=== PATIENT | female | born 1925 | race Caucasian/White ===

== ENCOUNTER 2016-09-13 10:27 | Emergency (ER) | payer MEDICARE, OTHER ==
[~2016-09-13] VITALS: Ht 160 cm; Wt 44.5 kg
[~2016-09-13 10:27] MED LIST: ASCO250T7 PO; CA C1TAB29 PO; CALC-78 PO; HYDR-4150 PO; HYDR200T PO; LEVO75TA36 PO; OMEG-38 PO; PREG150C PO; QUET25TA73 PO; SERT100T PO; VITA100T6 PO
[2016-09-13 10:30] VITALS: BP 197/88; PULSE 79; RESP 14; O2SAT 100
--- NOTE | 2016-09-13 10:37 | ED.REPORT ---
HPI-Trauma Minor / Fall Date of Service Sep 13, 2016 ED Provider: Eunice Quiroz MD 89 year old female with a history of cancer, hypertension and hypothyroid who presents to the ED after she tripped and fell in her driveway just [employer]OR[employer]. Pt landed on her R thumb and hit the L side of her face. Pt with an obvious deformity to the R thumb and a bruised and swollen L eye. Pt denies LOC and neck pain. Pt is not on anticoagulants. Nursing Notes Stated Complaint: LEFT EYE BRUISED/HAND INJURY/FALL Chief Complaint: Multiple Trauma/Fall Nursing Notes Reviewed: Yes Allergies: Coded Allergies: No Known Allergies (Verified , 04/04/15) Scheduled Ascorbic Acid (Vitamin C) 250 Mg Tab.chew 250 MG PO DAILY Ca Cmb 1/Vit D3/B-6/FA/B12/Av (Vitamin D3-Aloe 1,000 Unit Tab) 1 Each Tablet 1 EACH PO DAILY Calcium Carbonate/Vitamin D3 (Calcium 500 + Vit D Caplet) 1 Each Tablet 1 EACH PO DAILY Hydroxychloroquine Sulfate (Plaquenil) 200 Mg Tablet 200 MG PO DAILY Levothyroxine (Levoxyl) 75 Mcg Tablet 75 MCG PO DAILY [place]-3/Dha/Epa/Fish Oil (Fish Oil 1,000 mg Softgel) 1 Each Capsule 1 EACH PO DAILY Pregabalin (Lyrica) 150 Mg Capsule 150 MG PO HS Quetiapine Fumarate (Quetiapine Fumarate) 25 Mg Tablet 25 MG PO HS Sertraline HCl (Zoloft) 100 Mg Tablet 150 MG PO DAILY Vitamin E Acid Succinate (Vitamin E) 100 Unit Tablet Unknown Dose PO DAILY Scheduled PRN Hydrocodone/Acetaminophen (Hackett 5-325 Tablet) 1 Tablet Tablet 1-2 TABLET PO Q4H PRN PRN For Moderate Pain General Time Seen by MD: 10:37 Chief Complaint Fall, Face injury, Extremity pain Hx Obtained From: Patient Arrived By: Walk-in Onset Occurred: Just prior to arrival Symptom Duration: Since onset Caused by: Fall on ground Location: Eye left Hand right Quality: Painful Severity: Current: Mild Associated with: Denies: Loss of consciousness, Neck pain Risk Factors Head CT Imaging Inclusion Criteria: >/= 16 yo age GCS of 14 OR 15 Non Pentrating Injury Presentation w/in 24 hrs. Patient Presents WITHOUT: Loss of Conciousness, PostTraumatic Amnesia, PROCEED W/ CONSIDERATIONS Consider Non Contrast CT for: >/= 60 yo Age WITHOUT LOCNo Auto vs Pedestrian, No Fall Down Steps >/= 5, No Focal Neuro Deficit, No GCS < 15, No S/S Basal Skull Fx, No Vomiting RF Statements: Risk factors reviewed Past Medical History Past Medical History History of lupus. Reports: Cancer, Hypertension Reports: Depression, Thyroid disease Past Surgical History Lumpectomy Bleeding ulcers Right hip fracture secondary to mechanical fall, status post surgery. Reports: Cholecystectomy Reports: Back/neck surgery Smoking History Former Smoker Social History Alcohol Use: Denies alcohol use Drug Use: Denies drug use Other Social History: Ambulatory Status Independent Review of Systems Basic Review of Systems Psychiatric: Normal thought content Constitutional: Denies: Fever Respiratory: Denies: Shortness of breath Musculoskeletal: Reports: Extremity pain Skin: Reports Bruising, Reports Swelling Neurologic: Denies: Change LOC, Headache Complete sys rev & neg: except as marked. Physical Exam Initial Vital Signs Vital Signs (First) Date Time Temp Pulse Resp B/P Pulse Ox O2 Delivery O2 Flow Rate FiO2 09/13/16 10:30 36.6 79 14 197/88 100 Initial VS: Reviewed Respiratory: No respiratory distress Extremities: Vascular intact, Neuro intact Skin: Warm, Dry, No cyanosis Neurologic: Alert, Oriented, Nonfocal Psychiatric: Mood/affect normal, Behavior normal, Normal thought content General/Constitutional: Awake, Alert, Cooperative Neck: Atraumatic, Supple, Full range of motion, No midline vertebral tend Head / Eyes: Normocephalic, PERRL Large L periorbotal hematoma, completely swollen shut. Upon opening, Scleral hemorrhage with normal cornea, normal vision. Upper Extremity / MS: Full range of motion (aside from R thumb), Neurologic intact, Vascular intact Grossly dislocated R thumb Interpretation & Diagnostics Interpretation & Diagnostics: CT face: IMPRESSION: 1. No acute facial fracture. 2. Marked left preorbital soft tissue swelling and periorbital edema with trace left proptosis. The left globe is intact. 3. Mucosal thickening and bony remodeling of the left maxillary sinus consistent with chronic sinusitis. 4. Findings suspicious for acute sinusitis of the frontal sinuses and right sphenoid sinus. Dictated by: Makenzie Crane M.D. on 09/13/2016 at 12:39 X-Ray Interpretation Xray Interpretation: IMPRESSION: 1. Acute fracture first proximal phalanx with angulation deformity. 2. Multifocal osteoarthritis Dictated by: Stan Mas M.D. on 09/13/2016 at 11:04 X-Ray Ordered: Hand right Interpretation / Wet Read by: Interpret - Radiologist CT Head Interpretation IMPRESSION: 1. No acute intracranial disease process. 2. Air-fluid level in left maxillary sinus which could be related to sinusitis versus occult facial fracture. If there is clinical concern for occult facial fracture, a dedicated CT scan of the face should be obtained. Dictated by: Randi Carias MD, PhD on 09/13/2016 at 11:47 Study: Head CT no contrast Interpretation / Wet Read by: Interpret - Radiologist Procedures Digital Nerve Block Time: 13:13 Procedure Performed by: ED physician Indication: Other (Finger fracture/reduction) Consent / Setup / Site Prep: Consent from patient, Time-out performed, Hand hygiene observed, Stand sterile technique Skin Preparation Agent: Other (Alcohol) Digit Involved: Thumb right Digital Block Procedure: Four digital nerve block, Lidocaine 1% Post-Procedure / Complications: No complications, Condition improved, Tolerated procedure well, Patient stable Reduction Finger Time: 13:20 Procedure Performed by: ED physician Consent / Setup / Site Prep: Time-out performed, Hand hygiene observed Finger / Joint Involved: Right 1 Anesthetic Method / Agent: Digital block, Lidocaine 1% Post-Procedure / Complications: NV intact post-procedure, Procedure successful , No complications, Complications, Tolerated procedure well, Patient stable Splint Application - Fx Mgt Splint Application- Fx Mgt: Spica splint to R hand Time: 13:32 Procedure Performed by: ED physician Precise Anatomic Location: R hand Definitive Fracture Care: Follow up > 4 days Post-Procedure / Complications: Cap refill normal, Post splint vascular nl, Post splint neuro nl, Condition improved, Tolerated procedure well, Patient stable Re-Eval/Medical Decision Re-Evaluation/Progress #1: Time of Eval: 10:50 Re-Evaluation/Progress Note: Pt offered pain medication, which she denies at this time. Re-Evaluation/Progress #2: Time of Eval: 12:11 Re-Evaluation/Progress Note: Pt in CT. Her family was updated of imaging results. Re-Evaluation/Progress #3: Time of Eval: 13:15 Re-Evaluation/Progress Note: Pt and family updated of imaging results. Digital block performed. Re-Evaluation/Progress #4: Time of Eval: 14:08 Re-Evaluation/Progress Note: Pt declines pain medication. Discussed plan for d/c and f/u. All questions addressed. Consultation : Referral / Consult Name: Ochoa Harris MD Consulted With: Orthopedic Call Returned at: 14:08 Access Services Assistant: Will see in office Note: Briefly reviewed x-ray and agrees with plan for follow up in the office. Counseled Regarding: Diagnosis, Need for follow-up, When/why to return to ED Discharge & Departure Impression: Primary Impression: Fracture of thumb, right, closed Encounter type: initial encounter Phalanx: proximal Fracture alignment: displaced Qualified Code: S62.511A - Displaced fracture of proximal phalanx of right thumb, initial encounter for closed fracture Additional Impressions: Periorbital hematoma of left eye Fall Encounter type: initial encounter Qualified Code: W19.XXXA - Unspecified fall, initial encounter Disposition: Home Discharge Condition All VS Reviewed: Yes Condition: Improved Patient Instructions: Finger Fracture (ED) Call the orthopedist, Dr. Harris, today to schedule an appointment next week. He will take another look at your broken thumb and put on a real cast. The eye buising is going to look worse for likely a couple weeks. Fortunatley there is NOT anything broken Use tylenol as needed for the pain. Thank you for letting me take care of you today! Referrals: Nereyda Resendez MD (PCP) Ochoa Harris MD Scribe Attestation Portions of this note were transcribed by Rosana Reaves. I, (Eunice Quiroz MD ) personally performed the history, physical exam and medical decision-making; I reviewed and confirmed the accuracy of the information in the transcribed note. Signed by: Rosana Reaves. 09/13/2016, 1410 copies to: Ochoa Harris MD; Nereyda Resendez MD, Shawna L MD Sep 13, 2016 10:37 Rosana Reaves Sep 13, 2016 11:10
--- NOTE | 2016-09-13 11:06 | DRSVH ---
PROCEDURE: X-RAY FINGERS, TWO VIEWS INDICATIONS: thumb trauma TECHNIQUE: AP hand, 2 views of the thumb acquired. COMPARISON: Right hand 01/01/2016 FINDINGS: Bones: Transverse fracture is present through the proximal shaft of the first proximal phalanx with d orsal angulation deformity. Arthritic changes at the basilar joint of the thumb and the IP joint of the thumb as well as visualiz ed joints of the fingers again noted. Soft tissues: No suspicious soft tissue calcifications. IMPRESSION: 1. Acute fracture first proximal phalanx with angulation deformity. 2. Multifocal osteoarthritis Dictated by: Stan Mas M.D. on 09/13/2016 at 11:04 Approved by: Stan Mas M.D. on 09/13/2016 at 11:04
--- NOTE | 2016-09-13 11:50 | DRSVH ---
PROCEDURE: CT BRAIN WITHOUT CONTRAST ([id number]) INDICATIONS: fall, face trauma TECHNIQUE: Noncontrast 4.5 mm thick angled axial sections acquired from the foramen magnum to the vertex, with c oronal reformats. COMPARISON: [facility], MR, BRAIN W/O CONTRAST, 05/20/2014, 14:45. FINDINGS: Image quality: Excellent. CSF spaces: Basal cisterns are patent. No extra-axial fluid collections. The ventricles are symmet emanuel in size and shape. Brain: No intracranial bleeds or masses. There is cerebral volume loss for age, with resultant vent ricular and sulcal prominence. There are periventricular and deep white matter chronic small vessel ischemic changes. There is intracranial internal carotid artery and vertebral artery atherosclerosis . Skull and face: Calvarium and visualized facial bones appear intact, without suspicious lesions. Lef t periorbital facial soft tissue swelling is noted. Sinuses: Air-fluid level noted on the left maxillary sinus. The mastoids are clear. IMPRESSION: 1. No acute intracranial disease process. 2. Air-fluid level in left maxillary sinus which could be related to sinusitis versus occult facial f racture. If there is clinical concern for occult facial fracture, a dedicated CT scan of the face antwan uld be obtained. Dictated by: Randi Carias MD, PhD on 09/13/2016 at 11:47 Approved by: Randi Carias MD, PhD on 09/13/2016 at 11:47
[2016-09-13] MEDS ORDERED: 0.9% Sodium Chloride Inhalation Solution ONE (12:06)
[2016-09-13] MEDS ORDERED: Fluorescein 0.6 mg Ophthalmic Strip ONE (12:06)
[2016-09-13] MEDS ORDERED: TETRACAINE 0.5% ONE (12:06)
--- NOTE | 2016-09-13 12:41 | DRSVH ---
PROCEDURE: CT FACE WITHOUT CONTRAST ([id number]) INDICATIONS: trauma TECHNIQUE: Noncontrast 1.5 mm thick axial images acquired from the mandible through the frontal sinuses, with co carmen and sagittal reformatting. For radiation dose reduction, the following was used: automated ex posure control. COMPARISON: None. FINDINGS: Image quality: Excellent. Bones and teeth: Orbital greene are intact. Sinus greene show no fracture or deformity. Nasal bones and septum are intact. Visualized portions of the mandible demonstrate no fractures or subluxation. Zygomatic arches are intact. Pterygoid plates are intact. Visualized portions of the skull base an d auditory canals are intact. Sinuses: Patient is status post left endoscopic sinus surgery. There is moderate left maxillary sinu s mucosal thickening and equivocal thickening of the inferior left turbinate. There is mild rightward nasal septal deviation. There is bony remodeling and periosteal thickening of the left maxillary sin us. Debris within the right sphenoid sinus has a frothy appearance. Mild mucosal thickening is presen t within the bilateral frontal sinuses and the bilateral anterior recesses. Paranasal sinuses are aer ated, without fluid levels, mucosal thickening, or mucoceles. Mastoid air cells are aerated. Soft tissues: There is marked left preorbital soft tissue swelling. No intraconal fluid; however ther e is mild periorbital edema with trace left proptosis. No unexpected foreign bodies. The globes are i ntact. Vascular: Visualized vascular structures appear normal in the absence of contrast. Bony vascular fo ramina and canals are intact. IMPRESSION: 1. No acute facial fracture. 2. Marked left preorbital soft tissue swelling and periorbital edema with trace left proptosis. The l eft globe is intact. 3. Mucosal thickening and bony remodeling of the left maxillary sinus consistent with chronic sinusit is. 4. Findings suspicious for acute sinusitis of the frontal sinuses and right sphenoid sinus. Dictated by: Makenzie Crane M.D. on 09/13/2016 at 12:39 Approved by: Makenzie Crane M.D. on 09/13/2016 at 12:39
[2016-09-13 14:22] VITALS: PULSE 60; RESP 14; O2SAT 100
== END 2016-09-13 14:24 | disposition home or self-care (01) ==
LOC: SED 10:27
DX: S62.511A Displaced fracture of proximal phalanx of right thumb, initial encounter for closed fracture (principal); S00.12XA Contusion of left eyelid and periocular area, initial encounter; W01.198A Fall on same level from slipping, tripping and stumbling with subsequent striking against other object, initial encounter; Y93.89 Activity, other specified; Y92.410 Unspecified street and highway as the place of occurrence of the external cause; Y99.8 Other external cause status; I10 Essential (primary) hypertension; E07.9 Disorder of thyroid, unspecified; Z98.890 Other specified postprocedural states; Z87.891 Personal history of nicotine dependence

== ENCOUNTER 2016-09-24 08:15 | Observation (INO) | payer MEDICARE, OTHER ==
[~2016-09-24] VITALS: Ht 160 cm; Wt 48.9 kg
[2016-09-24] VITALS (7 sets, daily range): BP systolic 122–174; BP diastolic 50–78; PULSE 75–94; RESP 16–20; O2SAT 98–100
--- NOTE | 2016-09-24 08:36 | ED.REPORT ---
HPI-GI Bleed Date of Service Sep 24, 2016 ED Provider: Oscar Hooper MD 89 year old female with a history of GI bleed and gastric ulcers presents to the ER accompanied by her son complaining of black stool onset yesterday. Associated symptoms include abdominal pain and vomiting 5x two days ago, now resolved, and insomnia. Patient denies dizziness, lightheadedness, chest pain, SOB, and hematemesis. Nursing Notes Stated Complaint: BLEEDING ULCER Chief Complaint: Female Abdominal Pain Nursing Notes Reviewed: Yes ([place] not reconciled) Allergies: Coded Allergies: No Known Allergies (Verified , 09/24/16) Scheduled Ascorbic Acid (Vitamin C) 250 Mg Tab.chew 250 MG PO DAILY Calcium Carbonate/Vitamin D3 (Calcium 500 + Vit D Caplet) 1 Each Tablet 1 EACH PO DAILY Cholecalciferol (Vitamin D3) (Vitamin D3) 1,000 Unit Tab.chew 1,000 UNIT PO DAILY Hydroxychloroquine Sulfate (Hydroxychloroquine Sulfate) 200 Mg Tablet 400 MG PO DAILY Levothyroxine (Levothyroxine) 100 Mcg Tablet 100 MCG PO DAILY Ellinger-3/Dha/Epa/Fish Oil (Fish Oil 1,000 mg Softgel) 1 Each Capsule 1 EACH PO DAILY Pregabalin (Lyrica) 150 Mg Capsule 150 MG PO QAM Quetiapine Fumarate (Quetiapine Fumarate) 25 Mg Tablet 50 MG PO HS Sertraline HCl (Sertraline) 100 Mg Tablet 150 MG PO DAILY Vitamin E Acid Succinate (Vitamin E) 100 Unit Tablet Unknown Dose PO DAILY General Time Seen by Provider: 08:33 Chief Complaint Chief Complaint: Stool tarry black Hx Obtained From: Patient Arrived By: Walk-in Onset Occurred: Yesterday Symptom Duration: Since onset Associated with: Reports: Abdominal pain, Denies: Chest pain, Shortness of breath Risk-GI Bleed Bleeding Risk Stratification Bleeding Risk: No Anticoagulants RF Statements: Risk factors reviewed Past Medical History Past Medical History Notes: Medication List (09/18/2016): Desonide 0.05% topical Hydroxychloroquine 200mg bid Levoxyl 75mcg daily Lyrica 150mg daily Ondansetron 8mg 6-8hrs prn Quetiapine 50mg (2 every pm) Vitamin D 1000 unit daily Voltaren 1% topical Zoloft 100mg tab (1.5 tabs daily) Past Medical History History of admit for upper GI bleed secondary to large gastric ulcer on EGD required 2 units transfusion in October 2009 Lupus Thrombocytopenic disorder Osteoporosis Hypothyroid Trigeminal neuralgia Insomnia Anxiety Reports: Cancer, Hypertension Reports: Depression, GI bleed, Thyroid disease Past Surgical History Lumpectomy Bleeding ulcers Right hip fracture secondary to mechanical fall, status post surgery. Reports: Cholecystectomy Reports: Back/neck surgery Smoking History Former Smoker Social History Alcohol Use: Denies alcohol use Drug Use: Denies drug use Other Social History: Ambulatory Status Independent Review of Systems Constitutional: Denies: Chills, Fever Respiratory: Denies: Non-productive cough, Shortness of breath Cardiovascular: Denies: Chest pain GI: Reports: Abdominal pain, Bloody/tarry stool, Melena, Vomiting, Denies: Hematemesis, Hematochezia Neurologic: Denies: Dizziness, Lightheaded Complete sys rev & neg: except as marked. Physical Exam Initial Vital Signs Vital Signs (First) Date Time Temp Pulse Resp B/P Pulse Ox O2 Delivery O2 Flow Rate FiO2 09/24/16 08:20 36.6 87 16 122/74 98 Room Air Initial VS: Reviewed, Vital signs normal Neck: Supple, Non-tender Skin: Warm, Dry, No cyanosis Neurologic: Alert, Oriented, Nonfocal Psychiatric: Mood/affect normal, Behavior normal, Normal thought content General/Constitutional: Awake, Alert, Well developed Appearance / Presentation: Positive: Cachectic, Frail Respiratory / Chest: Breath sounds NL, Breath sounds = bilat, No respiratory distress, No rales, No rhonchi, No wheezing Cardiovascular: Heart rate NL, Regular rhythm, Heart sounds NL, No murmurs, Cap refill not delayed, Peripheral circulation NL Abdomen: Soft, Non-tender, No guarding, No rebound, No distention Rectum / Perineum: No hemorrhoids, No lesions, Sphincter tone NL Rectal for Blood: Positive: Blood - occult heme + Head / Eyes: Normocephalic Trauma - General: Positive: Ecchymosis (Right face) Upper Extremity / MS: Neurologic intact, Vascular intact Right arm in cast. Interpretation & Diagnostics Lab Results Interpretation Result Diagram: 09/24/16 1340 09/24/16 1340 Test 09/24/16 08:41 09/24/16 11:00 Hold Purple Top Tube Received (Received) Hold Blue Top Tube Received (Received) Hold Conroy Top Tube Received (Received) Hold Neff Top Tube Received (Received) Prothrombin Time 10.5sec (8.1-12.5) Prothromb Time International Ratio 0.98ratio ECG Interpretation ECG Interpretation: Sinus rhythm, rate 74 No ischemic abnormalities No interval changes No change compared to ECG 04/04/2015. Time: 10:47 Interpreted by: ED physician Re-Eval/Medical Decision Med Decision/Clinical Course This is an 89-year-old female with a previous history of a gastric ulcer and GI bleed in 2009 requiring multiple unit transfusion. Doing well since then, but presents today complaining of dark stools and concerned she is bleeding and has another ulcer. She denies any abdominal pain or dyspepsia, but does note that a few days ago she had a vomiting illness that was [id number] has not had any vomiting today or nausea today. Denies any hematemesis. She denies being on NSAIDs, or anticoagulants. She has had a recent fall and has facial ecchymosis, and a right arm is casted following a fracture. She is hemodynamically normal, no tachycardia or hypotension. Her abdomen is soft and nontender. However her guaiac is positive although stools not frankly melenic is dark brown. Labs were obtained, and I received a call from lab including an INR greater than 10 as a preliminary report, but I discussed with the patient, family, reviewed records, obtained old records-find no indication that the patient's on any anticoagulation. He did INR, which was normal at 0.98. Patient's initial labs were normal. This is an elderly patient who complains of weakness, is guaiac positive and has a history of a significant gastric ulcer requiring multiple unit transfusion in recent years. She was started on a Protonix drip in the department and discussed the case with Dr. Louis from GI. The patient is being admitted, with endoscopy to be considered. The hospitalist is seen the patient in the department. Source of Hx: Old records Re-Evaluation/Progress #1: Time of Eval: 10:22 Re-Evaluation/Progress Note: Phone call from lab reporting elevated INR > 10. However, no indication in patient's medical history of anticoagulant use. Re-drawing to confirm. Re-Evaluation/Progress #2: Time of Eval: 11:53 Re-Evaluation/Progress Note: Discussed lab results and need to admit. Patient is amenable to the plan. All other questions addressed. Consultation #1: Referral / Consult Name: Ajith Mckeon MD Call Returned at: 11:30 Costumer Assistant: Agrees with eval, Agrees with plan Note: Discussed patient case with Dr. Mckeon, GI. Consultation #2: Referral / Consult Name: Lamar Frost MD Consulted With: Hospitalist Call Returned at: 12:54 Costumer Assistant: Agrees with eval, Agrees with plan, Accepts admit Differential Diagnosis: Negative: Angiodysplasia, Aorta esoph fistula, Crohn's disease, Diverticulosis, Foreign body intestine, Lurdes-Vega syndrome, Meckel' s diverticulum, Perirectal abscess, Pilonidal abscess, Pilonidal cyst, Ulcerative colitis Counseled Regarding: Diagnosis, Lab results, Need for admission Discharge & Departure Impression: Primary Impression: Gastrointestinal bleed GI bleed type/associated pathology: unspecified gastrointestinal hemorrhage type Qualified Code: K92.2 - Gastrointestinal hemorrhage, unspecified Disposition: ADMITTED TO HOSPITAL Discharge Condition All VS Reviewed: Yes Condition: Stable Referrals: NOPCP (PCP) Scribe Attestation Portions of this note were transcribed by José Miguel Woodall. I, Dr. Hooper, personally performed the history, physical exam and medical decision-making; I reviewed and confirmed the accuracy of the information in the transcribed note. Signed by: Chin Ladd, 09/24/2016 and 14:34. Oscar Hooper MD Sep 24, 2016 08:36 JOSÉ MIGUEL WOODALL Sep 24, 2016 08:55 (0.0-1.2) Aspartate Amino Transf (AST/SGOT) 28U/L (0-50) Alanine Aminotransferase (ALT/SGPT) 11U/L (0-32) Alkaline Phosphatase 65U/L (25-165) Total Protein 7.3g/dL (6.4-8.4) Albumin 3.9g/dL (3.4-5.0) Hold Conroy Top Tube Received (Received) Hold Neff Top Tube Received (Received) Prothrombin Time 10.5sec (8.1-12.5) Prothromb Time International Ratio 0.98ratio Hemoglobin 12.8g/dL (12.0-15.6) Hematocrit 39.0% (35.0-46.0) ECG Interpretation ECG Interpretation: Sinus rhythm, rate 74 No ischemic abnormalities No interval changes No change compared to ECG 04/04/2015. Time: 10:47 Interpreted by: ED physician Re-Eval/Medical Decision Source of Hx: Old records Re-Evaluation/Progress #1: Time of Eval: 10:22 Re-Evaluation/Progress Note: Phone call from lab reporting elevated INR > 10. However, no indication in patient's medical history of anticoagulant use. Re-drawing to confirm. Re-Evaluation/Progress #2: Time of Eval: 11:53 Re-Evaluation/Progress Note: Discussed lab results and need to admit. Patient is amenable to the plan. All other questions addressed. Consultation #1: Referral / Consult Name: Ajith Mckeon MD Call Returned at: 11:30 Costumer Assistant: Agrees with eval, Agrees with plan Note: Discussed patient case with Dr. Mckeon GI. Consultation #2: Referral / Consult Name: Lamar Frost MD Consulted With: Hospitalist Call Returned at: 12:54 Costumer Assistant: Agrees with eval, Agrees with plan, Accepts admit Counseled Regarding: Diagnosis, Lab results, Need for admission Discharge & Departure Impression: Primary Impression: Gastrointestinal bleed Disposition: ADMITTED TO HOSPITAL Discharge Condition All VS Reviewed: Yes Condition: Stable Referrals: NOPCP (PCP) Scribe Attestation Portions of this note were transcribed by José Miguel Woodall. I, Dr. Hooper, personally performed the history, physical exam and medical decision-making; I reviewed and confirmed the accuracy of the information in the transcribed note. Signed by: Chin Ladd, 09/24/2016 and *time*. Oscar Hooper MD Sep 24, 2016 08:36 JOSÉ MIGUEL WOODALL Sep 24, 2016 08:55
[2016-09-24] MEDS ORDERED: EPINEPHrine 0.1 mg/mL 10 mL Syringe ONE (09:00)
[2016-09-24] MEDS ORDERED: Pantoprazole 4 mg/mL 10 mL Inj IVPUSH ONE (09:45)
[2016-09-24] MEDS ORDERED: Pantoprazole Inj 80 MG, Pharmacy To Mix 1 EA in 0.9% Sodium Chloride 80 ML IV ONE ×2 (09:45)
[2016-09-24 10:02] LABS: BASOPHILS % (AUTO) 0.2 % (0-3); EOSINOPHILS % (AUTO) 0.8 % (0-5); MONOCYTES % (AUTO) 7.1 % (4-12); Mean Corpuscular Hemoglobin 29.2 pg (27.0-35.0); Mean Corpuscular Volume 88.4 fL (81-100); NEUTROPHILS % (AUTO) 85.1 % (40-74); Platelet Count 222 bil/L (150-400)
[2016-09-24 11:18] LABS: INR 0.98 ratio
[2016-09-24] MEDS ORDERED: Ondansetron 2 mg/mL 2 mL Inj IVPUSH PRN (13:20)
--- NOTE | 2016-09-24 13:40 | PCM.HPMED ---
Subjective Date of Service Sep 24, 2016 Primary Provider: Admitting Physician: Lamar Frost MD Primary Care Physician: Nopcp Attending Physician: Lamar Frost MD Admit Status: From the Emergency Department, Full Admit, Admit to [place] Team, Remote Telemetry Chief Complaint: Loose dark stool and feeling lightheaded History of Present Illness: This is an 89-year-old female who has a history of large gastric ulcer back in 2009. She was doing okay up until 2 weeks ago had a ground-level fall off does have a right thumb fracture along with a left sided head contusion. She a few days ago developed some nausea vomiting and it was self-limiting over about 2 days whenever out yesterday started noticing some darker stool loose several bowel movements yesterday and felt somewhat weak and dizzy and presented to the emergency room for further evaluation. In the ER, patient was noted to have dark brown stool which was positive however. She denies any chest pain or shortness of breath. Review of Systems: All other review of systems are reviewed and are negative except for as in history of present illness. Allergies Coded Allergies: No Known Allergies (Verified , 09/24/16) Home Medications Medication List (09/18/2016): Desonide 0.05% topical Hydroxychloroquine 200mg bid Levoxyl 75mcg daily Lyrica 150mg daily Ondansetron 8mg 6-8hrs prn Quetiapine 50mg (2 every pm) Vitamin D 1000 unit daily Voltaren 1% topical Zoloft 100mg tab (1.5 tabs daily) PMH Past Medical History History of admit for upper GI bleed secondary to large gastric ulcer on EGD required 2 units transfusion in October 2009 Lupus Thrombocytopenic disorder Osteoporosis Hypothyroid Trigeminal neuralgia Insomnia Anxiety Reports: Cancer, Hypertension Reports: Depression, GI bleed, Thyroid disease Past Surgical History Lumpectomy Bleeding ulcers Right hip fracture secondary to mechanical fall, status post surgery. Reports: Cholecystectomy Reports: Back/neck surgery Family History Denies any family history of GI bleeds. Denies any history of coagulation disorders. Social History Hx Alcohol Use: Yes (occasionally ) Hx Substance Use: No Hx Tobacco Use: No Smoking Status: Former Smoker Living Arrangement: Alone Exam Vital Signs Vital Sign - Last Date Time Temp Pulse Resp B/P Pulse Ox O2 Delivery O2 Flow Rate FiO2 09/24/16 10:16 37.2 78 20 137/50 98 Room Air Exam Constitutional: Pleasant elderly woman resting comfortably in ER gurney Head: Does reveal contusion on the left forehead and upper cheek area Eyes: PERRLA DC EOMI Neck: No adenopathy Chest: Clear to auscultation x scant crackles at both bases Cor: Regular rate and rhythm S1-S2 without murmur Abdomen: Soft nontender bowel sounds present Extremities: No pedal edema. Does have forearm hand cast over her right side arm Skin: No rashes Psych: Normal mood and affect Neuro: Alert and oriented 3, moves all extremities equally sensation is intact bilaterally. Lab and Diagnostics Labs Laboratory Tests 72 Hours Test 09/24/16 08:41 09/24/16 11:00 09/24/16 12:15 White Blood Count 12.0th/mm3 (3.8-10.1) Red Blood Count 4.83mil/mm3 (3.90-5.20) Hemoglobin 14.1g/dL (12.0-15.6) 12.8g/dL (12.0-15.6) Hematocrit 42.7% (35.0-46.0) 39.0% (35.0-46.0) Mean Corpuscular Volume 88.4fL (81-100) Mean Corpuscular Hemoglobin 29.2pg (27.0-35.0) Mean Corpuscular Hemoglobin Concent 33.0% (32.0-37.0) Red Cell Distribution Width 14.8% (12.3-15.4) Platelet Count 222bil/L (150-400) Neutrophils (%) (Auto) 85.1% (40-74) Lymphocytes (%) (Auto) 6.5% (14-46) Monocytes (%) (Auto) 7.1% (4-12) Eosinophils (%) (Auto) 0.8% (0-5) Basophils (%) (Auto) 0.2% (0-3) Hold Purple Top Tube Received (Received) Hold Blue Top Tube Received (Received) Sodium Level 138mEq/L (134-144) Potassium Level 4.6mEq/L (3.5-5.2) Chloride Level 102mEq/L (97-108) Carbon Dioxide Level 21mmol/L (18-29) Blood Urea Nitrogen 56mg/dL (8-27) Creatinine 1.08mg/dL (0.57-1.00) Estimat Glomerular Filtration Rate 68mL/min (>59) Glucose Level 124mg/dL (60-99) Calcium Level 9.2mg/dL (8.5-10.1) Total Bilirubin 0.5mg/dL (0.0-1.2) Aspartate Amino Transf (AST/SGOT) 28U/L (0-50) Alanine Aminotransferase (ALT/SGPT) 11U/L (0-32) Alkaline Phosphatase 65U/L (25-165) Total Protein 7.3g/dL (6.4-8.4) Albumin 3.9g/dL (3.4-5.0) Hold [place] Top Tube Received (Received) Hold Neff Top Tube Received (Received) Prothrombin Time 10.5sec (8.1-12.5) Prothromb Time International Ratio 0.98ratio Result Diagram: 09/24/16 1215 09/24/16 0841 12-lead ECG Sinus rhythm at rate of 74 no acute abnormalities noted Assessment & Plan # Possible GI bleed, acute, present on admission Dr. Michael OKEEFE is aware and will scope or potentially later today. Make nothing by mouth IV fluid hydration Placed on IV Protonix drip Repeat hematocrit per ER doctor was fairly stable and will recheck in a.m. unless there are further indications to check sooner We will also check a series of troponins given she is elderly with potential GI bleed # Recent history of nausea vomiting, resolved We will check chest x-ray to make sure there was no evidence of aspiration she is somewhat kyphotic and did have some scant crackles at the bases bilaterally # Hypothyroidism, chronic, present on admission Continue with her oral supplementation # Depression, chronic, present on admission Continue with her medications from home #DVT prophylaxis We will use SCDs and not subcutaneous anticoagulation given possible GI bleed # CODE STATUS Patient is full code GI Prophylaxis: Proton Pump Inhibitor VTE Prophylaxis Indicated: Contraindicated (possible GI bleed) VTE Mechanical Devices: Intermittant Pneumatic CD Resuscitation Status: CPR: Attempt Resuscitation Time spent 60 minutes Lamar Frost MD Sep 24, 2016 13:40
[2016-09-24] MEDS ORDERED: LEVO100T6 PO (13:42)
[2016-09-24] MEDS ORDERED: HYDR200T5 PO (13:42)
[2016-09-24] MEDS ORDERED: SERT100T9 PO (13:42)
[2016-09-24] MEDS ORDERED: CHOL10008 PO (13:42)
[2016-09-24 13:50] LABS: BASOPHILS % (AUTO) 0.1 % (0-3); EOSINOPHILS % (AUTO) 3.6 % (0-5); MONOCYTES % (AUTO) 8.2 % (4-12); Mean Corpuscular Hemoglobin 30.4 pg (27.0-35.0); Mean Corpuscular Volume 94.3 fL (81-100); NEUTROPHILS % (AUTO) 54.5 % (40-74); Platelet Count 170 bil/L (150-400)
[2016-09-24 14:26] LABS: TROPONIN T < 0.010 ug/L (0.0-0.011)
[2016-09-24] MEDS: 0.9% Sodium Chloride 1,000 ML IV SCH (14:26)
--- NOTE | 2016-09-24 15:01 | NUR ---
Case Management: Attempted to give [place] and Medicare Part D info at 2:55 pm, physician at bedside evaluating patient. Will try later. YAZAN Roy RN
--- NOTE | 2016-09-24 15:46 | CONS ---
[address] [address] CONSULTATION REPORT PATIENT: ZUHAIR GOINS : 1925 MR#: [id number] ADMIT: 09/24/2016 JOB ID: [id number] DATE OF SERVICE: 09/24/2016 GASTROENTEROLOGY CONSULT: REQUESTING PROVIDER: Oscar Hooper MD. REASON FOR CONSULTATION: Suspected upper GI bleed. HISTORY OF PRESENT ILLNESS: This is an 89-year-old female with a history of large gastric ulcer who was in her usual state of health up until about Friday evening, two nights ago. She had beef barley soup for dinner and then started to feel unwell. She had numerous emesis that evening but does not recall any obvious blood. However, the next day, she developed significant diarrhea that was black in color. She felt quite poorly and actually had a burning upper abdominal discomfort that seemed to radiate up into her central chest region with the emesis. Last emesis was yesterday. In the ED today she had a very mild anemia with a hemoglobin of 11.7 after fluids (she initially checked in with a hemoglobin of 14.1). White count was slightly elevated and has since normalized. Platelets are normal. She has started on PPI drip and admitted for further observation. She is not on any NSAIDs. She does not take a PPI. ALLERGIES: No known drug allergies. MEDICATIONS: Hydroxychloroquine, omega-3 fish oil, Lyrica, quetiapine, sertraline, calcium carbonate with vitamin D3, levothyroxine, ascorbic acid, vitamin D3, vitamin E. PAST MEDICAL HISTORY: Gastric ulcer, GI bleed, lupus, thrombocytopenia, osteoporosis, hypothyroid, trigeminal neuralgia, insomnia, anxiety, adenomatous colon polyps. The patient denies any use of nonsteroidal anti-inflammatory medications. PAST SURGICAL HISTORY: Cholecystectomy, back and neck surgery, hip fracture requiring surgery, breast lumpectomy. FAMILY HISTORY: Noncontributory. SOCIAL HISTORY: The patient takes occasional alcohol. She is an ex-smoker. She is currently living alone. REVIEW OF SYSTEMS: The patient fell stepping off of a curb recently and this caused some trauma to the left side of her face and a right thumb fracture. Her body weight is stable. She reports that she has a tough time gaining weight. She eats twice a day, has steel cut oats and honey each morning and usually has a second meal in the evening as described above in the HPI. Otherwise, review is currently negative apart from the HPI. PHYSICAL EXAMINATION: Blood pressure is up a little bit at 174/78, pulse 94, breathing 20, temperature 36.5, pulse oximetry 100% on room air. The patient is in no distress. Alert, oriented, appropriate, cooperative, conversational. There is definitely some ecchymotic mash filter cloth changer the left aspect of her jaw. She is quite thin and frail in appearance. Lungs: Clear bilaterally. Good respiratory effort. Heart: Regular. No significant peripheral pitting edema. Abdomen has a small amount of extra-stored adipose. I did not appreciate any tenderness to the exam. No significant distention. Bowel sounds were present. LABORATORY DATA: As above. Platelets 170, white count now is down to 6.9. INR was 0.98. Sodium 136, potassium 4.2, chloride 99, bicarb 26, BUN 21 (down from 56 at presentation), creatinine 1.07, glucose 148, calcium 9.1. Bilirubin 0.3, AST 24, ALT 11, alk phos 88, albumin 3.7. Troponin is negative. ASSESSMENT AND PLAN: An 89-year-old female with a sudden change in gastrointestinal function characterized by nausea, vomiting and black loose stools. She has had a slight drop in hemoglobin but thus far does not appear to require transfusion. She has appropriately been placed on proton pump inhibitor drip in light of the gastric ulcer history. There does not appear to be any ongoing active hemorrhage. The patient is authorized to initiate clear liquids. I agree with continuing proton pump inhibitor. She is written for n.p.o. status after midnight and is currently on the schedule for EGD tomorrow morning.
--- NOTE | 2016-09-24 15:55 | DRSVH ---
PROCEDURE: X-RAY CHEST ONE VIEW, PORTABLE ([id number]) INDICATIONS: NAUSEA AND VOMITING TECHNIQUE: One view of the chest was acquired. COMPARISON: [facility], CR, XR CHEST 1VW, 04/04/2015, 14:07. FINDINGS: Surgical changes and devices: Left axillary surgical clips. Lungs and pleura: No pleural effusions or pneumothorax. Lungs are clear. Mediastinum: Mediastinal contours appear normal. Heart size is normal. Bones and chest wall: No suspicious bony lesions. Overlying soft tissues appear unremarkable. IMPRESSION: No acute cardiopulmonary disease. Dictated by: Gordo AMOS Interpreted: Tori Berumen MD on 09/24/2016 at 15:54 Transcribed by: ALYSSA on 09/24/2016 at 15:54 Approved by: Tori Berumen M.D. on 09/24/2016 at 16:30
[2016-09-24] MEDS: Pantoprazole Inj 80 MG in 0.9% Sodium Chloride 80 ML IV SCH (16:38)
--- NOTE | 2016-09-24 17:53 | NUR ---
Case Management: PADMINI explained to patient at 1705, signed by patient with difficulty as she has a cast on the right hand/forearm. Signed copy placed in chart, copy given to patient. I also provided "How Medicare Covers Self-administered Drugs Given in Hospital Outpatient Settings". Michelle Hernandez RN
--- NOTE | 2016-09-24 18:14 | NUR ---
pain/activity assumed care of patient at 1515. patient denies pain. telemetry sinus rhythm. protonix gtt infusing as ordered. up with one person assist to bathroom. tolerating clear liquids and to be npo after midnight. no s/s of bleeding and no stools. will give report to oncoming rn at 1900.
--- NOTE | 2016-09-24 19:26 | NUR ---
run of psvt notified per telephone diaphragm assembler at 1830 that patient had run of psvt in the 140's at 1825. Dr. Rasmussen night resident called and notified and to notify Dr. Stanford night hospitalist. no new orders received. patient asymptomatic. went into room immediately and patient states "i feel fine". per telephone diaphragm assembler report patient has no further episodes and currently SR at 76. NOC ULISSES Palomino notified and notified that night resident notified.
[2016-09-25] VITALS (9 sets, daily range): BP systolic 136–170; BP diastolic 63–80; PULSE 71–85; RESP 16–24; O2SAT 98–100
[2016-09-25] MEDS: 0.9% Sodium Chloride 1,000 ML IV SCH ×4 (03:45→16:14)
[2016-09-25] MEDS: Pantoprazole Inj 80 MG in 0.9% Sodium Chloride 80 ML IV SCH ×2 (04:17→16:11)
--- NOTE | 2016-09-25 05:56 | NUR ---
Ambulation Per report pt was to use walker to ambulate to [facility], however pt was easily able to ambulate to [facility] w/ walker.
[2016-09-25] MEDS ORDERED: fentaNYL-PF 50 mCg/mL 2 mL Inj IVPUSH PRN (06:00)
[2016-09-25] MEDS ORDERED: Sodium Chloride LOK Flush 10 mL Syringe IV PRN (06:00)
--- NOTE | 2016-09-25 10:51 | PCM.PNMED ---
Subjective Date of Service Sep 25, 2016 Subjective He has been having still some loose stool had 2 episodes earlier this morning. She does not know what the color was. She notes some abdominal gas pain which comes and goes. Has had no nausea or vomiting. She notes that she is hungry. She remains nothing by mouth for EGD today. Exam Vital Signs Vital Sign - Last Date Time Temp Pulse Resp B/P Pulse Ox O2 Delivery O2 Flow Rate FiO2 09/25/16 09:23 80 09/25/16 08:50 36.4 160/66 100 Room Air 09/25/16 06:00 20 Intake and Output 09/24/16 09/24/16 09/25/16 Cumulative From/Thru 15:00 23:00 07:00 09/24/16 08:20 - 09/25/16 06:26 Intake Total 593 ml 969 ml 1562 ml Output Total 225 ml 225 ml Balance 368 ml 969 ml 1337 ml Intake Oral 210 ml 0 ml 210 ml IV Total 383 ml 969 ml 1352 ml Output Urine Total 225 ml 225 ml # Voids 1 1 2 # Bowel Movements 1 1 Exam Constitutional: Elderly woman in no acute distress Head: Normocephalic pelvic atrophic hematocrit except for her resolving left- sided facial contusion after fall Chest: Clear to auscultation Cor: Regular rate and rhythm S1-S2 without murmur Abdomen soft nontender bowel sounds present Extremities exam no pedal edema noted Lab and Diagnostics Laboratory Tests 72 Hours Test 09/24/16 08:41 09/24/16 11:00 09/24/16 12:15 09/24/16 13:40 White Blood Count 12.0th/mm3 (3.8-10.1) 6.9th/mm3 (3.8-10.1) Red Blood Count 4.83mil/mm3 (3.90-5.20) 3.85mil/mm3 (3.90-5.20) Hemoglobin 14.1g/dL (12.0-15.6) 12.8g/dL (12.0-15.6) 11.7g/dL (12.0-15.6) Hematocrit 42.7% (35.0-46.0) 39.0% (35.0-46.0) 36.3% (35.0-46.0) Mean Corpuscular Volume 88.4fL (81-100) 94.3fL (81-100) Mean Corpuscular Hemoglobin 29.2pg (27.0-35.0) 30.4pg (27.0-35.0) Mean Corpuscular Hemoglobin Concent 33.0% (32.0-37.0) 32.2% (32.0-37.0) Red Cell Distribution Width 14.8% (12.3-15.4) 15.4% (12.3-15.4) Platelet Count 222bil/L (150-400) 170bil/L (150-400) Neutrophils (%) (Auto) 85.1% (40-74) 54.5% (40-74) Lymphocytes (%) (Auto) 6.5% (14-46) 33.5% (14-46) Monocytes (%) (Auto) 7.1% (4-12) 8.2% (4-12) Eosinophils (%) (Auto) 0.8% (0-5) 3.6% (0-5) Basophils (%) (Auto) 0.2% (0-3) 0.1% (0-3) Hold Purple Top Tube Received (Received) Hold Blue Top Tube Received (Received) Sodium Level 138mEq/L (134-144) 136mEq/L (134-144) Potassium Level 4.6mEq/L (3.5-5.2) 4.2mEq/L (3.5-5.2) Chloride Level 102mEq/L (97-108) 99mEq/L (97-108) Carbon Dioxide Level 21mmol/L (18-29) 26mmol/L (18-29) Blood Urea Nitrogen 56mg/dL (8-27) 21mg/dL (8-27) Creatinine 1.08mg/dL (0.57-1.00) 1.07mg/dL (0.57-1.00) Estimat Glomerular Filtration Rate 68mL/min (>59) 69mL/min (>59) Glucose Level 124mg/dL (60-99) 148mg/dL (60-99) Calcium Level 9.2mg/dL (8.5-10.1) 9.1mg/dL (8.5-10.1) Total Bilirubin 0.5mg/dL (0.0-1.2) 0.3mg/dL (0.0-1.2) Aspartate Amino Transf (AST/SGOT) 28U/L (0-50) 24U/L (0-50) Alanine Aminotransferase (ALT/SGPT) 11U/L (0-32) 11U/L (0-32) Alkaline Phosphatase 65U/L (25-165) 88U/L (25-165) Total Protein 7.3g/dL (6.4-8.4) 6.3g/dL (6.4-8.4) Albumin 3.9g/dL (3.4-5.0) 3.7g/dL (3.4-5.0) Hold [place] Top Tube Received (Received) Hold Neff Top Tube Received (Received) Prothrombin Time 10.5sec (8.1-12.5) Prothromb Time International Ratio 0.98ratio Troponin T < 0.010ug/L (0.0-0.011) Test 09/24/16 19:26 09/25/16 01:16 Troponin T < 0.010ug/L (0.0-0.011) 0.010ug/L (0.0-0.011) Result Diagram: 09/24/16 1340 09/24/16 1340 X-Rays, CTs and MRIs Patient Name: ZUHAIR GOINS MR#: [id number] Location: [facility] [place] [facility] [place]ing Phys: Lamar Frost MD Date of Service: 09/24/16 1337 PROCEDURE: X-RAY CHEST ONE VIEW, PORTABLE ([id number]) INDICATIONS: NAUSEA AND VOMITING TECHNIQUE: One view of the chest was acquired. COMPARISON: [facility], CR, XR CHEST 1VW, 04/04/2015, 14:07. FINDINGS: Surgical changes and devices: Left axillary surgical clips. Lungs and pleura: No pleural effusions or pneumothorax. Lungs are clear. Mediastinum: Mediastinal contours appear normal. Heart size is normal. Bones and chest wall: No suspicious bony lesions. Overlying soft tissues appear unremarkable. IMPRESSION: No acute cardiopulmonary disease. Dictated by: Gordo AMOS Interpreted: Tori Berumen MD on 09/24/2016 at 15: 54 Transcribed by: ALYSSA on 09/24/2016 at 15:54 Approved by: Tori Berumen M.D. on 09/24/2016 at 16:30 12-lead ECG Sinus rhythm at rate of 74 no acute abnormalities noted Assessment & Plan # Possible GI bleed, acute, present on admission Dr. Michael OKEEFE is aware and will scope or potentially later today. Make nothing by mouth IV fluid hydration Placed on IV Protonix drip Repeat hematocrit per ER doctor was fairly stable and will recheck in a.m. unless there are further indications to check sooner We will also check a series of troponins given she is elderly with potential GI bleed For EGD later today. Hemoglobin and hematocrit check is pending Stool PCR is pending # Recent history of nausea vomiting, resolved We will check chest x-ray to make sure there was no evidence of aspiration she is somewhat kyphotic and did have some scant crackles at the bases bilaterally # Hypothyroidism, chronic, present on admission Continue with her oral supplementation # Depression, chronic, present on admission Continue with her medications from home #DVT prophylaxis We will use SCDs and not subcutaneous anticoagulation given possible GI bleed # CODE STATUS Did discuss again today and wishes DNR/DNI GI Prophylaxis: Proton Pump Inhibitor VTE Mechanical Devices: Intermittant Pneumatic CD Resuscitation Status: CPR: Attempt Resuscitation Time spent 30 minutes Lamar Frost MD Sep 25, 2016 10:51
--- NOTE | 2016-09-25 12:27 | NUR ---
EGD Pt taken from EGD at 1150. Stable and w/o complaints. Labs stable. 1040 Hospitalist notified of 6 seconds of PVST, pt asymptomatic, this am. To collect PRC with next stool.
--- NOTE | 2016-09-25 13:01 | NUR ---
Social Work Note Initial Assessment: D/A: EMR reviewed, QUE met with the Pt's son Librado ([phone]) to explain role and to discuss discharge planning. The Pt is currently out of the room having a scope completed. The Pt is an 89 y/o female that was admitted for a GI Bleed on 09/24/2016 according to EMR. Readmission score is not listed. The Pt has Medicare insurance with [employer] supplement. She has LTC according to son, unknown company. The Pt has no VA benefits. The Pt's PCP is not listed, but the Pt's son reports that she does have one, unknown name. The Pt lives alone on [address] in a two story home with one son and multiple supportive neighbors nearby. The son reports that the Pt is independent at baseline, continues to drive, and is not a caregiver. The son reports that the Pt has not had any HH services but has been to an unknown SNF for a hip fracture. The son reports that his stepfather recently passed this last April and that he is now the [facility], paperwork requested. The son reported that he will be able to provide the Pt with transportation home after discharge. SW will continue to follow for further assistance once scope results have been completed. P: Pt to be discharged when medically stable, rule out possible HH needs. QUE will continue to follow for further assistance once scope results have been completed. HATTIE Perry MSW Addendum: 09/25/16 at 1303 by SAGE SUTTON Amended: Links added.
--- NOTE | 2016-09-25 14:21 | ENDO ---
[address] [address] ENDOSCOPY PROCEDURE PATIENT: ZUHAIR GOINS : 1925 MR#: [id number] ADMIT: 09/24/2016 JOB ID: [id number] DATE OF SERVICE: 09/25/2016 PROCEDURE: Esophagogastroduodenoscopy with biopsy, epinephrine injection, and Gold Probe application for hemostasis. INDICATIONS: An 89-year-old female with a history of gastric ulceration who has been admitted for symptoms suggestive of recurrent upper GI bleeding. EQUIPMENT: [id number]. SEDATION: 1. Versed 2.5 mg. 2. Fentanyl 62.5 mcg. COMPLICATIONS: None identified. PROCEDURE INFORMATION: After the risks and benefits were explained, written and verbal informed consent was obtained. The patient was brought into the endoscopy suite and placed into the left lateral decubitus position. Sedation was achieved using the above-stated medications with the addition of oxygen via nasal cannula. The scope was introduced into the mouth through the bite block, and advanced under direct visualization to the second portion of the duodenum. The scope was slowly withdrawn to carefully examine the mucosa for any defects or lesions. Retroflexed views were accomplished in the stomach. The stomach was decompressed. The scope removed from the patient who tolerated the procedure well. FINDINGS: 1. Esophagus: The patient had a small hiatal hernia. There was evidence of erosive esophagitis, LA grade B-C, throughout the distal third. No mass lesions. No sign of any high-risk stigmata for recent hemorrhage. 2. Duodenum: No new or old blood appreciated. No ulcers, mass lesions, or inflammatory features throughout. No vascular pathology. 3. Stomach: The patient had a diffuse gastropathy seen throughout. Retroflexed views of the LES disclosed a small sliding hiatal hernia. In the 1 o'clock location in the distal antrum/prepyloric region, there was a sizable, mostly bland-based ulcer. There was no evidence of the edges being heaped up. This did not appear suggestive of neoplasia. That said, random gastric biopsy was taken for Helicobacter pylori infection. In the base of the ulcer, there was evidence of a possible nonbleeding visible vessel. We therefore injected around the ulcer with a total of 1.25 mL of dilute 1:10,000 epinephrine. There was an appropriate blanching effect in this region. We then utilized the 7-Upper Sorbian Gold Probe and cauterized the area that looked like it might be a nonbleeding visible vessel. There was no significant hemorrhage with this maneuver. ENDOSCOPIC DIAGNOSES: 1. Recurrent gastric ulcer. 2. Gastropathy. 3. Hiatal hernia. 4. Erosive esophagitis. RECOMMENDATIONS: 1. Await histopathology. If helicobacter is found, it will need to be eradicated with standard triple therapy. 2. Continue PPI drip until tomorrow morning and then convert over to oral twice daily Protonix. 3. Diet can be advanced through the afternoon, as the patient remains clinically stable. 4. If the patient remains clinically stable with tolerance of dietary advancement, then the patient perhaps can be considered for discharge as early as midday tomorrow. I would, however, recommend she continue b.i.d. PPI for at least two weeks and then indefinite use of once daily Protonix thereafter. 5. Depending on Helicobacter pylori status, repeat EGD would be appropriate in about 4-6 weeks to monitor for ulcer healing.
--- NOTE | 2016-09-25 14:26 | NUR ---
EGD pt back from EGD at 1410. Report provided by Justina GTZ. Stable and w/o pain or complaints. VSS. Intact swallow/gag. Able to advance to clears. Tele on. Remains on protonix drip. Son at bedside.
[2016-09-25 14:43] LABS: BASOPHILS % (AUTO) 0.4 % (0-3); EOSINOPHILS % (AUTO) 0.4 % (0-5); MONOCYTES % (AUTO) 5.2 % (4-12); Mean Corpuscular Hemoglobin 29.4 pg (27.0-35.0); Mean Corpuscular Volume 88.5 fL (81-100); NEUTROPHILS % (AUTO) 86.2 % (40-74); Platelet Count 199 bil/L (150-400)
[2016-09-25] MEDS: Hydroxychloroqine 200 mg Tablet PO SCH (16:52)
[2016-09-26 00:50] VITALS: BP 147/79; PULSE 75; RESP 16; O2SAT 99
[2016-09-26] MEDS: Pantoprazole Inj 80 MG in 0.9% Sodium Chloride 80 ML IV SCH ×2 (02:36→08:30)
[2016-09-26] MEDS: 0.9% Sodium Chloride 1,000 ML IV SCH ×2 (02:36→06:00)
[2016-09-26 04:44] VITALS: BP 142/66; PULSE 70; RESP 18; O2SAT 98
[2016-09-26 05:43] VITALS: PULSE 76
--- NOTE | 2016-09-26 06:08 | NUR ---
Ambulation / Discharge Hope Pt has stated they feel much better, it is clear that they do. Ambulation has been w/ ease minimal assistance. Pt is aware of discharge situation and is eager to go. I believe patient has significantly improved.
[2016-09-26] MEDS ORDERED: Pantoprazole 40 mg ER24 Tablet PO SCH (07:30)
[2016-09-26 08:00] VITALS: PULSE 68
[2016-09-26] MEDS: Hydroxychloroqine 200 mg Tablet PO SCH (08:40)
[2016-09-26 10:09] VITALS: BP 169/73; PULSE 73
--- NOTE | 2016-09-26 11:28 | PCM.DIMED ---
Discharge Instructions Date of Service Sep 26, 2016 Dates of Hospitalization Sep 24, 2016 at 12:54 Discharge Diagnosis Discharge Diagnosis Upper GI bleed with large gastric ulcer seen Test Results DATE OF SERVICE: 09/25/2016 PROCEDURE: Esophagogastroduodenoscopy with biopsy, epinephrine injection, and Gold Probe application for hemostasis. INDICATIONS: An 89-year-old female with a history of gastric ulceration who has been admitted for symptoms suggestive of recurrent upper GI bleeding. EQUIPMENT: GIF-H180J. SEDATION: 1. Versed 2.5 mg. 2. Fentanyl 62.5 mcg. COMPLICATIONS: None identified. PROCEDURE INFORMATION: After the risks and benefits were explained, written and verbal informed consent was obtained. The patient was brought into the endoscopy suite and placed into the left lateral decubitus position. Sedation was achieved using the above-stated medications with the addition of oxygen via nasal cannula. The scope was introduced into the mouth through the bite block, and advanced under direct visualization to the second portion of the duodenum. The scope was slowly withdrawn to carefully examine the mucosa for any defects or lesions. Retroflexed views were accomplished in the stomach. The stomach was decompressed. The scope removed from the patient who tolerated the procedure well. FINDINGS: 1. Esophagus: The patient had a small hiatal hernia. There was evidence of erosive esophagitis, LA grade B-C, throughout the distal third. No mass lesions. No sign of any high-risk stigmata for recent hemorrhage. 2. Duodenum: No new or old blood appreciated. No ulcers, mass lesions, or inflammatory features throughout. No vascular pathology. 3. Stomach: The patient had a diffuse gastropathy seen throughout. Retroflexed views of the LES disclosed a small sliding hiatal hernia. In the 1 o'clock location in the distal antrum/prepyloric region, there was a sizable, mostly bland-based ulcer. There was no evidence of the edges being heaped up. This did not appear suggestive of neoplasia. That said, random gastric biopsy was taken for Helicobacter pylori infection. In the base of the ulcer, there was evidence of a possible nonbleeding visible vessel. We therefore injected around the ulcer with a total of 1.25 mL of dilute 1:10,000 epinephrine. There was an appropriate blanching effect in this region. We then utilized the 7-[place] Gold Probe and cauterized the area that looked like it might be a nonbleeding visible vessel. There was no significant hemorrhage with this maneuver. ENDOSCOPIC DIAGNOSES: 1. Recurrent gastric ulcer. 2. Gastropathy. 3. Hiatal hernia. 4. Erosive esophagitis. RECOMMENDATIONS: 1. Await histopathology. If helicobacter is found, it will need to be eradicated with standard triple therapy. 2. Continue PPI drip until tomorrow morning and then convert over to oral twice daily Protonix. 3. Diet can be advanced through the afternoon, as the patient remains clinically stable. 4. If the patient remains clinically stable with tolerance of dietary advancement, then the patient perhaps can be considered for discharge as early as midday tomorrow. I would, however, recommend she continue b.i.d. PPI for at least two weeks and then indefinite use of once daily Protonix thereafter. 5. Depending on Helicobacter pylori status, repeat EGD would be appropriate in about 4-6 weeks to monitor for ulcer healing. Ajith Mckeon MD 09/25/16 1332 <Electronically signed by Ajith Mckeon MD> 09/26/16 0641 Diet Heart Healthy Activity Home Health Phyical Therapy Call your provider Fever or Chills, Shortness of breath, Bleeding, Chest pain, Vomitting, Excessive diarrhea, Weakness (unilateral) Patient Instructions Follow-up with PCP in: 1 week (sooner if problems) Lamar Frost MD Sep 26, 2016 11:28
[2016-09-26] MEDS ORDERED: PANT40TA3 PO (11:33)
[2016-09-26 11:36] LABS: BASOPHILS % (AUTO) 0.1 % (0-3); EOSINOPHILS % (AUTO) 2.3 % (0-5); MONOCYTES % (AUTO) 8.2 % (4-12); Mean Corpuscular Hemoglobin 28.6 pg (27.0-35.0); Mean Corpuscular Volume 89.2 fL (81-100); NEUTROPHILS % (AUTO) 80.1 % (40-74); Platelet Count 210 bil/L (150-400)
--- NOTE | 2016-09-26 11:37 | PCM.DC.MED ---
Discharge Summary Date of Service Sep 26, 2016 Dates of Hospitalization Date of Hospital Admission Sep 24, 2016 at 12:54 Date of Discharge: Sep 26, 2016 Providers: Admitting Physician: Lamar Frost MD Primary Care Physician: Nopcp Attending Physician: Lamar Frost MD Diagnosis at Time of Discharge Diagnosis at Time of Discharge Upper GI bleed with large gastric ulcer seen Consultations Gastroenterology Procedures XRay, CTs & MRIs Patient Name: ZUHAIR GOINS MR#: [id number] Location: [facility] [place] Ordering Phys: Lamar Frost MD Date of Service: 09/24/16 1337 PROCEDURE: X-RAY CHEST ONE VIEW, PORTABLE ([id number]) INDICATIONS: NAUSEA AND VOMITING TECHNIQUE: One view of the chest was acquired. COMPARISON: [facility], CR, XR CHEST 1VW, 04/04/2015, 14:07. FINDINGS: Surgical changes and devices: Left axillary surgical clips. Lungs and pleura: No pleural effusions or pneumothorax. Lungs are clear. Mediastinum: Mediastinal contours appear normal. Heart size is normal. Bones and chest wall: No suspicious bony lesions. Overlying soft tissues appear unremarkable. IMPRESSION: No acute cardiopulmonary disease. Dictated by: Gordo Garg RRA Interpreted: Tori Berumen MD on 09/24/2016 at 15: 54 Transcribed by: ALYSSA on 09/24/2016 at 15:54 Approved by: Tori Berumen M.D. on 09/24/2016 at 16:30 ECG 12 Lead Sinus rhythm at rate of 74 no acute abnormalities noted Invasive Procedures PATIENT: ZUHAIR GOINS : 1925 MR#: [id number] ADMIT: 09/24/2016 JOB ID: [id number] DATE OF SERVICE: 09/25/2016 PROCEDURE: Esophagogastroduodenoscopy with biopsy, epinephrine injection, and Gold Probe application for hemostasis. INDICATIONS: An 89-year-old female with a history of gastric ulceration who has been admitted for symptoms suggestive of recurrent upper GI bleeding. EQUIPMENT: GIF-H180J. SEDATION: 1. Versed 2.5 mg. 2. Fentanyl 62.5 mcg. COMPLICATIONS: None identified. PROCEDURE INFORMATION: After the risks and benefits were explained, written and verbal informed consent was obtained. The patient was brought into the endoscopy suite and placed into the left lateral decubitus position. Sedation was achieved using the above-stated medications with the addition of oxygen via nasal cannula. The scope was introduced into the mouth through the bite block, and advanced under direct visualization to the second portion of the duodenum. The scope was slowly withdrawn to carefully examine the mucosa for any defects or lesions. Retroflexed views were accomplished in the stomach. The stomach was decompressed. The scope removed from the patient who tolerated the procedure well. FINDINGS: 1. Esophagus: The patient had a small hiatal hernia. There was evidence of erosive esophagitis, LA grade B-C, throughout the distal third. No mass lesions. No sign of any high-risk stigmata for recent hemorrhage. 2. Duodenum: No new or old blood appreciated. No ulcers, mass lesions, or inflammatory features throughout. No vascular pathology. 3. Stomach: The patient had a diffuse gastropathy seen throughout. Retroflexed views of the LES disclosed a small sliding hiatal hernia. In the 1 o'clock location in the distal antrum/prepyloric region, there was a sizable, mostly bland-based ulcer. There was no evidence of the edges being heaped up. This did not appear suggestive of neoplasia. That said, random gastric biopsy was taken for Helicobacter pylori infection. In the base of the ulcer, there was evidence of a possible nonbleeding visible vessel. We therefore injected around the ulcer with a total of 1.25 mL of dilute 1:10,000 epinephrine. There was an appropriate blanching effect in this region. We then utilized the 7-[place] Gold Probe and cauterized the area that looked like it might be a nonbleeding visible vessel. There was no significant hemorrhage with this maneuver. ENDOSCOPIC DIAGNOSES: 1. Recurrent gastric ulcer. 2. Gastropathy. 3. Hiatal hernia. 4. Erosive esophagitis. RECOMMENDATIONS: 1. Await histopathology. If helicobacter is found, it will need to be eradicated with standard triple therapy. 2. Continue PPI drip until tomorrow morning and then convert over to oral twice daily Protonix. 3. Diet can be advanced through the afternoon, as the patient remains clinically stable. 4. If the patient remains clinically stable with tolerance of dietary advancement, then the patient perhaps can be considered for discharge as early as midday tomorrow. I would, however, recommend she continue b.i.d. PPI for at least two weeks and then indefinite use of once daily Protonix thereafter. 5. Depending on Helicobacter pylori status, repeat EGD would be appropriate in about 4-6 weeks to monitor for ulcer healing. Ajith Mckeon MD 09/25/16 1332 <Electronically signed by Ajith Mckeon MD> 09/26/16 7836 Report status: Signed Transcribed by: MIGUELITO 09/25/16 4379 REPORT#: [id number] cc: PCP, NO ; Ajith Mckeon MD Brief History This is an 89-year-old female who has a history of large gastric ulcer back in 2009. She was doing okay up until 2 weeks ago had a ground-level fall off does have a right thumb fracture along with a left sided head contusion. She a few days ago developed some nausea vomiting and it was self-limiting over about 2 days whenever out yesterday started noticing some darker stool loose several bowel movements yesterday and felt somewhat weak and dizzy and presented to the emergency room for further evaluation. In the ER, patient was noted to have dark brown stool which was positive however. She denies any chest pain or shortness of breath. Hospital Course # Possible GI bleed, acute, present on admission Dr. Michael OKEEFE is aware and will scope or potentially later today. Make nothing by mouth IV fluid hydration Placed on IV Protonix drip Repeat hematocrit per ER doctor was fairly stable and will recheck in a.m. unless there are further indications to check sooner We will also check a series of troponins given she is elderly with potential GI bleed Hemoglobin and hematocrit check is stable Please see EGD report as noted above with recurrence of gastric ulcer noted. H. pylori is pending. Patient will be discharged on Protonix 40 mg by mouth twice a day for GI. # Recent history of nausea vomiting, resolved We will check chest x-ray to make sure there was no evidence of aspiration she is somewhat kyphotic and did have some scant crackles at the bases bilaterally # Hypothyroidism, chronic, present on admission Continue with her oral supplementation # Depression, chronic, present on admission Continue with her medications from home #DVT prophylaxis We will use SCDs and not subcutaneous anticoagulation given possible GI bleed # CODE STATUS Did discuss again today and wishes DNR/DNI Exam Vital Signs (Last) Date Time Temp Pulse Resp B/P Pulse Ox O2 Delivery O2 Flow Rate FiO2 09/26/16 10:09 73 169/73 09/26/16 04:44 36.4 18 98 Room Air Laboratory Tests 72 Hours Test 09/24/16 08:41 09/24/16 11:00 09/24/16 12:15 09/24/16 13:40 White Blood Count 12.0th/mm3 (3.8-10.1) 6.9th/mm3 (3.8-10.1) Red Blood Count 4.83mil/mm3 (3.90-5.20) 3.85mil/mm3 (3.90-5.20) Hemoglobin 14.1g/dL (12.0-15.6) 12.8g/dL (12.0-15.6) 11.7g/dL (12.0-15.6) Hematocrit 42.7% (35.0-46.0) 39.0% (35.0-46.0) 36.3% (35.0-46.0) Mean Corpuscular Volume 88.4fL (81-100) 94.3fL (81-100) Mean Corpuscular Hemoglobin 29.2pg (27.0-35.0) 30.4pg (27.0-35.0) Mean Corpuscular Hemoglobin Concent 33.0% (32.0-37.0) 32.2% (32.0-37.0) Red Cell Distribution Width 14.8% (12.3-15.4) 15.4% (12.3-15.4) Platelet Count 222bil/L (150-400) 170bil/L (150-400) Neutrophils (%) (Auto) 85.1% (40-74) 54.5% (40-74) Lymphocytes (%) (Auto) 6.5% (14-46) 33.5% (14-46) Monocytes (%) (Auto) 7.1% (4-12) 8.2% (4-12) Eosinophils (%) (Auto) 0.8% (0-5) 3.6% (0-5) Basophils (%) (Auto) 0.2% (0-3) 0.1% (0-3) Hold Purple Top Tube Received (Received) Hold Blue Top Tube Received (Received) Sodium Level 138mEq/L (134-144) 136mEq/L (134-144) Potassium Level 4.6mEq/L (3.5-5.2) 4.2mEq/L (3.5-5.2) Chloride Level 102mEq/L (97-108) 99mEq/L (97-108) Carbon Dioxide Level 21mmol/L (18-29) 26mmol/L (18-29) Blood Urea Nitrogen 56mg/dL (8-27) 21mg/dL (8-27) Creatinine 1.08mg/dL (0.57-1.00) 1.07mg/dL (0.57-1.00) Estimat Glomerular Filtration Rate 68mL/min (>59) 69mL/min (>59) Glucose Level 124mg/dL (60-99) 148mg/dL (60-99) Calcium Level 9.2mg/dL (8.5-10.1) 9.1mg/dL (8.5-10.1) Total Bilirubin 0.5mg/dL (0.0-1.2) 0.3mg/dL (0.0-1.2) Aspartate Amino Transf (AST/SGOT) 28U/L (0-50) 24U/L (0-50) Alanine Aminotransferase (ALT/SGPT) 11U/L (0-32) 11U/L (0-32) Alkaline Phosphatase 65U/L (25-165) 88U/L (25-165) Total Protein 7.3g/dL (6.4-8.4) 6.3g/dL (6.4-8.4) Albumin 3.9g/dL (3.4-5.0) 3.7g/dL (3.4-5.0) Hold [place] Top Tube Received (Received) Hold [place] Top Tube Received (Received) Prothrombin Time 10.5sec (8.1-12.5) Prothromb Time International Ratio 0.98ratio Troponin T < 0.010ug/L (0.0-0.011) Test 09/24/16 19:26 09/25/16 01:16 09/25/16 11:20 09/25/16 14:29 Troponin T < 0.010ug/L (0.0-0.011) 0.010ug/L (0.0-0.011) Hemoglobin 12.4g/dL (12.0-15.6) 13.0g/dL (12.0-15.6) Hematocrit 38.0% (35.0-46.0) 39.1% (35.0-46.0) White Blood Count 8.3th/mm3 (3.8-10.1) Red Blood Count 4.42mil/mm3 (3.90-5.20) Mean Corpuscular Volume 88.5fL (81-100) Mean Corpuscular Hemoglobin 29.4pg (27.0-35.0) Mean Corpuscular Hemoglobin Concent 33.2% (32.0-37.0) Red Cell Distribution Width 14.3% (12.3-15.4) Platelet Count 199bil/L (150-400) Neutrophils (%) (Auto) 86.2% (40-74) Lymphocytes (%) (Auto) 7.1% (14-46) Monocytes (%) (Auto) 5.2% (4-12) Eosinophils (%) (Auto) 0.4% (0-5) Basophils (%) (Auto) 0.4% (0-3) Sodium Level 141mEq/L (134-144) Potassium Level 4.5mEq/L (3.5-5.2) Chloride Level 109mEq/L (97-108) Carbon Dioxide Level 16mmol/L (18-29) Blood Urea Nitrogen 43mg/dL (8-27) Creatinine 0.69mg/dL (0.57-1.00) Estimat Glomerular Filtration Rate 115mL/min (>59) Glucose Level 87mg/dL (60-99) Calcium Level 7.5mg/dL (8.5-10.1) Total Bilirubin 0.3mg/dL (0.0-1.2) Aspartate Amino Transf (AST/SGOT) 20U/L (0-50) Alanine Aminotransferase (ALT/SGPT) 9U/L (0-32) Alkaline Phosphatase 49U/L (25-165) Total Protein 5.9g/dL (6.4-8.4) Albumin 3.2g/dL (3.4-5.0) Test 09/26/16 11:19 Test 09/24/16 08:41 09/24/16 11:00 09/25/16 01:16 09/25/16 14:29 Hold Purple Top Tube Received (Received) Hold Blue Top Tube Received (Received) Hold [place] Top Tube Received (Received) Hold Neff Top Tube Received (Received) Prothrombin Time 10.5sec (8.1-12.5) Prothromb Time International Ratio 0.98ratio Troponin T 0.010ug/L (0.0-0.011) Total Bilirubin 0.3mg/dL (0.0-1.2) Aspartate Amino Transf (AST/SGOT) 20U/L (0-50) Alanine Aminotransferase (ALT/SGPT) 9U/L (0-32) Alkaline Phosphatase 49U/L (25-165) Total Protein 5.9g/dL (6.4-8.4) Albumin 3.2g/dL (3.4-5.0) Test 09/26/16 11:19 Discharge Medications Discharge Medications Ascorbic Acid (Vitamin C) 250 Mg Tab.chew 250 MG PO DAILY (Reported) Calcium Carbonate/Vitamin D3 (Calcium 500 + Vit D Caplet) 1 Each Tablet 1 EACH PO DAILY (Reported) Cholecalciferol (Vitamin D3) (Vitamin D3) 1,000 Unit Tab.chew 1,000 UNIT PO DAILY (Reported) Hydroxychloroquine Sulfate (Hydroxychloroquine Sulfate) 200 Mg Tablet 400 MG PO DAILY (Reported) Levothyroxine (Levothyroxine) 100 Mcg Tablet 100 MCG PO DAILY (Reported) [place]-3/Dha/Epa/Fish Oil (Fish Oil 1,000 mg Softgel) 1 Each Capsule 1 EACH PO DAILY (Reported) Pantoprazole DR (Pantoprazole DR) 40 Mg Tablet.dr 40 MG PO BIDAC Prescribed by: LAMAR FROST MD Pregabalin (Lyrica) 150 Mg Capsule 150 MG PO QAM (Reported) Quetiapine Fumarate (Quetiapine Fumarate) 25 Mg Tablet 50 MG PO HS (Reported) Sertraline HCl (Sertraline) 100 Mg Tablet 150 MG PO DAILY (Reported) Vitamin E Acid Succinate (Vitamin E) 100 Unit Tablet Unknown Dose PO DAILY ( Reported) Followup Plan Discharge Diet: Heart Healthy Discharge Activity: Home Health Phyical Therapy Follow-up with PCP in: 1 week (sooner if problems) Time spent 60 minutes Lamar Frost MD Sep 26, 2016 11:36
[2016-09-26 13:56] VITALS: BP 157/73; PULSE 72; RESP 22; O2SAT 98
--- NOTE | 2016-09-26 15:48 | NUR ---
Social Work: Discharge D: Pt discussed in am rounds. Pt is medically stable for discharge. Per RN pt may benefit from home health. [employer] met with pt at bedside to discuss this option. Pt declines this at this time stating she is not homebound. Per RN notes, pt's ambulation has been I and no concerns with d/c home. EMR reviewed; no sw needs at this time. A: Pt who is lives at home on [address]. P: Anticipate pt to discharge home via POV today and no sw needs.
--- NOTE | 2016-09-26 16:01 | NUR ---
Discharge Pt discharged from unit, accompanied by neighbor. Pt provided with new medication and information, information on diagnoses, signs to watch for, and follow up. Per hospitalist, EGD will be scheduled by pt's PCP. Pt taken off floor in wheelchair.
--- NOTE | 2016-09-27 11:52 | PATH ---
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 Negative for evidence of Helicobacter. Negative for intestinal metaplasia. Negative for dysplasia and malignancy. ICD10 CODE K29.70 GROSS DESCRIPTION: The specimen is received in one formalin filled container labeled with the patient's name, sublabeled "gastric" and consists of a 0.3 x 0.3 x 0.2 CM portion of tissue which is entirely submitted in one cassette. 09/26/2016 [facility] MICRO DESCRIPTION: See diagnosis. ICD-9 CODES: CPT CODES: 1: 85708 Electronically Signed Out Ajith Zuniga MD [facility] Pathology [facility] [address] [place] [address] Technical component performed at [facility], [address] [place] [address] Ave[address], [place], [address]
== END 2016-09-26 15:35 | disposition home or self-care (01) ==
LOC: SED 08:15 → MOC 12:54
PROVIDERS: ADMIT Specialist; ATTEND Specialist
DX: K25.7 Chronic gastric ulcer without hemorrhage or perforation (principal); K44.9 Diaphragmatic hernia without obstruction or gangrene; K29.50 Unspecified chronic gastritis without bleeding; K22.10 Ulcer of esophagus without bleeding; K92.1 Melena; Z87.11 Personal history of peptic ulcer disease; D69.6 Thrombocytopenia, unspecified; M81.0 Age-related osteoporosis without current pathological fracture; I10 Essential (primary) hypertension
CPT/HCPCS: 36415; 43239; 43255; 71010; 80048; 80053; 84484; 85014; 85018; 85025; 85610; 86850; 88305; 93005; 96365; 96366; 96375; 99285; G0378; J0171; J7030

== ENCOUNTER 2016-10-30 07:50 | Day surgery (SDC) | payer MEDICARE, OTHER ==
[~2016-10-30] VITALS: Ht 160 cm; Wt 45.4 kg
[~2016-10-30 07:50] MED LIST changes: +0.9% Sodium Chloride 1,000 ML IV SCH; -CA C1TAB29 PO; +CHOL10008 PO; -HYDR-4150 PO; -HYDR200T PO; +HYDR200T5 PO; +LEVO100T6 PO; -LEVO75TA36 PO; +PANT40TA3 PO; -SERT100T PO; +SERT100T9 PO; +Sodium Chloride LOK Flush 10 mL Syringe IV PRN; +fentaNYL-PF 50 mCg/mL 2 mL Inj IVPUSH PRN
[2016-10-30 08:19] VITALS: BP 147/74; PULSE 74; RESP 16; O2SAT 100
[2016-10-30 09:10] VITALS: BP 142/66; PULSE 70; RESP 15; O2SAT 100
[2016-10-30 09:19] VITALS: BP 137/63; PULSE 70; RESP 15; O2SAT 100
[2016-10-30 09:29] VITALS: BP 138/71; PULSE 73; RESP 15; O2SAT 100
[2016-10-30 09:39] VITALS: BP 136/59; PULSE 65; RESP 15; O2SAT 100
--- NOTE | 2016-10-30 09:42 | ENDO ---
[address] [address] ENDOSCOPY PROCEDURE PATIENT: ZUHAIR GOINS : 1925 MR#: [id number] ADMIT: 10/30/2016 JOB ID: [id number] DATE OF SERVICE: 10/30/2016 PRIMARY PROVIDER: Flower Oneil PA-C. PROCEDURE: Esophagogastroduodenoscopy. INDICATIONS: An 89-year-old female recently admitted with symptoms of upper GI bleeding. She had a sizable gastric ulcer and at least LA grade C erosive ulcerative esophagitis. She has been on PPI and has been clinically doing quite well. There was no evidence of helicobacter at gastric biopsies. Repeat EGD is pursued to evaluate for ulcer healing and esophagitis healing. EQUIPMENT: GIF-H180J. SEDATION: 1. Versed 2 mg. 2. Fentanyl 50 mcg. 3. Lidocaine swish and swallow. COMPLICATIONS: None identified. PROCEDURE INFORMATION: After the risks and benefits were explained, written and verbal informed consent was obtained. The patient was brought into the endoscopy suite and placed into the left lateral decubitus position. Sedation was achieved as above. The scope introduced into the mouth through the bite block, and advanced under direct visualization to the junction between first and second portions of the duodenum. The scope was slowly withdrawn to carefully examine the mucosa for any defects or lesions. Retroflexed views were accomplished in the stomach. The stomach was decompressed. The scope removed from the patient who tolerated the procedure well. FINDINGS: 1. Duodenum: No mucosal pathology appreciated throughout first and proximal second portions. Fairly sharp angle between D1 and D2. 2. Stomach: No outlet obstruction. No mass lesions. The ulcer was still present but appeared to be quite a bit smaller. This was bland based, and perhaps about 4-5 mm in size at this point. No other pathology was appreciated throughout the stomach including retroflexed views of the LES. 3. Esophagus: Squamocolumnar junction correlated with the top of the gastric folds. The GEJ was at about 41 cm from the incisors. The patient has had complete healing of the distal esophagus. No evidence of any element of esophagitis. ENDOSCOPIC DIAGNOSES: 1. Subtle sliding hiatal hernia (not mentioned above). 2. Healed esophagitis. 3. Healing but persistent diminutive gastric ulcer. RECOMMENDATIONS: 1. Continue avoidance of nonsteroidal anti-inflammatory medications. 2. Continue once daily Protonix. 3. Follow up GI at any time as needed.
[2016-10-30 09:49] VITALS: BP 127/59; PULSE 64; RESP 15; O2SAT 100
== END 2016-10-30 23:59 | disposition home or self-care (01) ==
LOC: END 07:50
PROVIDERS: ATTEND Internal Medicine Gastroenterology
DX: K25.9 Gastric ulcer, unspecified as acute or chronic, without hemorrhage or perforation (principal); K44.9 Diaphragmatic hernia without obstruction or gangrene; M32.9 Systemic lupus erythematosus, unspecified; G50.0 Trigeminal neuralgia
CPT/HCPCS: 43235; G0500; J2250; J3010; J7030